=== PATIENT | male | born 1955 | race Caucasian/White ===

== ENCOUNTER 2022-12-06 08:09 | Day surgery (SDC) | payer OTHER, SELFPAY ==
--- NOTE | 2022-12-05 10:58 | HO.ANESPROP2 ---
Documented by User: Lexus Marie NP 12/05/22 11:02 HPI - Anesthesia Eval Consult details Narrative: 67yo M for Upper Endoscopy and Colonoscopy CAD with stents and pericarditis ~ 20yrs ago. Now, no CP/SOB with >4 mets. No longer follows cardiology. [facility] Past Medical History Medical History (Updated 12/05/22 @ 10:05 by Char Connor RN) CAD (coronary artery disease) Elevated PSA HTN (hypertension) Hyperlipidemia Osteoarthritis Pericarditis Prediabetes Surgical History Surgical History (Updated 12/05/22 @ 10:05 by Char Connor RN) H/O cardiac catheterization Hx of tonsillectomy Social History Social History Patient Tobacco Use Status: Current everyday Tobacco user Tobacco use type: Cigarette Cigarettes Per Day: 11 Use of substances other than those prescribed or required for medical reasons: No Are you DNR?: No Advance Directives: No Advance Directives Information Provided: Yes Recently lost weight without trying: No Nutrition Risks: No Nutritional Risk Meds Allergies Allergy/AdvReac Type Severity Reaction Status Date / Time atorvastatin [From LIPITOR] Allergy Unknown ACHY BODY Unverified 04/20/20 17:18 ALL OVER lisinopril [LISINOPRIL] Allergy Unknown SEVERE Unverified 04/20/20 17:18 COUGH Home Medications Medication Instructions Recorded Confirmed Last Taken Type amlodipine 5 mg tablet 5 mg PO DAILY 12/05/22 12/06/22 12/06/22 History bupropion HCl 150 mg tablet,12 hr 150 mg PO BID 12/05/22 12/06/22 12/06/22 History sustained-release carvedilol 25 mg tablet 25 mg PO BID 12/05/22 12/06/22 12/06/22 History hydrochlorothiazide 25 mg tablet 25 mg PO DAILY 12/05/22 12/06/22 Unknown History pantoprazole 40 mg tablet,delayed 40 mg PO DAILY 12/05/22 12/06/22 12/06/22 History release rosuvastatin 40 mg tablet (Crestor) 40 mg PO DAILY 12/05/22 12/06/22 12/06/22 History sildenafil 100 mg tablet 100 mg PO DAILY PRN SEXUAL ACTIVITY 12/05/22 12/06/22 Unknown History triamcinolone acetonide 0.1 % appl topical BID 12/05/22 Unknown History topical cream varenicline 1 mg tablet 1 mg PO BID 12/05/22 12/06/22 Unknown History Exam Exam Date and Time: December 05, 2022 1058 Assessment and Plan Assessment Anesthesia Assessment: Chart Reviewed Documented by User: Ivonne Gutierrez MD 12/06/22 08:46 [facility] Past Medical History Medical History (Updated 12/05/22 @ 10:05 by Char Connor RN) CAD (coronary artery disease) Elevated PSA HTN (hypertension) Hyperlipidemia Osteoarthritis Pericarditis Prediabetes Family History Family history of problems with anesthesia: No Surgical History Surgical History (Updated 12/05/22 @ 10:05 by Char Connor RN) H/O cardiac catheterization Hx of tonsillectomy History of Problems with Anesthesia: No Social History Social History Patient Tobacco Use Status: Current everyday Tobacco user Tobacco use type: Cigarette Cigarettes Per Day: 11 Use of substances other than those prescribed or required for medical reasons: No Are you DNR?: No Advance Directives: No Advance Directives Information Provided: Yes Recently lost weight without trying: No Nutrition Risks: No Nutritional Risk Meds Allergies Allergy/AdvReac Type Severity Reaction Status Date / Time atorvastatin [From LIPITOR] Allergy Unknown ACHY BODY Unverified 04/20/20 17:18 ALL OVER lisinopril [LISINOPRIL] Allergy Unknown SEVERE Unverified 04/20/20 17:18 COUGH Home Medications Medication Instructions Recorded Confirmed Last Taken Type amlodipine 5 mg tablet 5 mg PO DAILY 12/05/22 12/06/22 12/06/22 History bupropion HCl 150 mg tablet,12 hr 150 mg PO BID 12/05/22 12/06/22 12/06/22 History sustained-release carvedilol 25 mg tablet 25 mg PO BID 12/05/22 12/06/22 12/06/22 History hydrochlorothiazide 25 mg tablet 25 mg PO DAILY 12/05/22 12/06/22 Unknown History pantoprazole 40 mg tablet,delayed 40 mg PO DAILY 12/05/22 12/06/22 12/06/22 History release rosuvastatin 40 mg tablet (Crestor) 40 mg PO DAILY 12/05/22 12/06/22 12/06/22 History sildenafil 100 mg tablet 100 mg PO DAILY PRN SEXUAL ACTIVITY 12/05/22 12/06/22 Unknown History triamcinolone acetonide 0.1 % appl topical BID 12/05/22 Unknown History topical cream varenicline 1 mg tablet 1 mg PO BID 12/05/22 12/06/22 Unknown History Exam Airway Mallampati Class: II (implants and caps in front) TM Dist: >3cm Neck ROM: Full Heart: rrr Lungs: cta Assessment and Plan Assessment Anesthesia Assessment: Anesthesia Plan Discussed Final Anesthetic Review Family History of Problems with Anesthesia: No History of Problems with Anesthesia: No NPO: Yes ASA Class: III Final Preanesthetic Review: No Changes in Pt Med Stat, Meds/Allgs Chart Reviewed and Consent Obtained/Reviewed Patient Risk: Intermediate Procedure Risk: Intermediate Anesthetic Plan Anesthetic Plan: MAC: Disposition: Standard PACU
[2022-12-06 08:37] VITALS: BMI 33.4
[2022-12-06 08:52] VITALS: BP 164/81; PULSE 85; RESP 16; TEMP 36.1; O2SAT 97
[2022-12-06] MEDS: Lactated Ringers 1,000 ML 100 ML IVCONT (09:04)
--- NOTE | 2022-12-06 09:26 | MHC.SHP ---
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,screening Details of Present Illness: see H&P no changes Relevant Family History (Specify if Yes): No Relevant Social History: None Present Medications: see Short Stay Collaborative assessment Medical History: No relevant PMH Allergies: Allergies Allergy/AdvReac Type Severity Reaction Status Date / Time atorvastatin [From LIPITOR] Allergy Unknown ACHY BODY Verified 12/06/22 09:04 ALL OVER lisinopril [LISINOPRIL] Allergy Unknown SEVERE Verified 12/06/22 09:04 COUGH Review of Systems Sugical H&P ROS: Negative: Constitution, Cardiovascular, Respiratory, Neurological, Psychiatric, Hem-Onc, Allergic/Immunologic, Gastrointestinal, Genitourinary, Musculoskeletal, Integumentary, Endocrine and Eyes/Ears/Nose/Throat Exam Surgical H&P Exam: Normal: HEENT, Normal: Heart, Normal: Lungs, Normal: Extremities, Normal: Abdomen, Normal: Skin and Normal: Neurological Plan Diagnosis/Plan: Unchanged I have reviewed the history and physical and performed a pertinent physical examination on my patient. No changes have occurred unless specified. Time Spent With Patient Time: Total time managing care of this patient today ____ minutes.
[2022-12-06 10:13] VITALS: BP 120/82; PULSE 91; RESP 16; TEMP 37.1; O2SAT 94
[2022-12-06 10:28] VITALS: BP 131/84; PULSE 89; RESP 16; TEMP 37.1; O2SAT 96
--- NOTE | 2022-12-06 11:01 | OP_ITS ---
DATE OF SERVICE: 12/06/2022 SURGEON: Ant Griffith MD INDICATIONS: 1. Pereira esophagus. 2. Colon cancer screening. PREOPERATIVE DIAGNOSIS: POSTOPERATIVE DIAGNOSIS: PROCEDURE PERFORMED: Upper endoscopy with biopsy, colonoscopy to the terminal ileum with biopsy and snare polypectomy. ESTIMATED BLOOD LOSS: COMPLICATIONS: ANESTHESIA: Monitored anesthesia care. ASSISTANTS: SPECIMENS: DESCRIPTION OF PROCEDURE: A history and physical was performed. The risks and benefits of the procedure were explained to the patient. Informed consent was obtained. The patient was placed in the left lateral decubitus position. The Olympus video gastroscope was introduced into the esophagus, stomach, and duodenum. Examination was performed. The scope was removed. He was repositioned for colonoscopy. A digital rectal exam was performed and was found to be normal. The Olympus pediatric video colonoscope was introduced into the rectum and advanced to the cecum without difficulty. The cecum was identified by transillumination, palpation, and identification of the ileocecal valve. Examination was performed. The scope was removed. He tolerated the procedure well and was returned to the recovery area in stable condition. FINDINGS: Upper endoscopy: 1. Esophagus: The esophagus showed a small segment of Pereira esophagus measuring approximately 1 cm. Biopsies were obtained from the EG junction at 35 cm and at 34 cm. 2. Stomach: The stomach was normal. 3. Duodenum: There was mild duodenitis. Colonoscopy: The terminal ileum was normal. The visualized colonic mucosa was normal. There were 3 polyps, all of which were removed. The first was less than 5 mm located at 80 cm and was removed with biopsy forceps, the second was located at 70 cm, and the third was located at 50 cm. Both of these were less than 10 mm and removed with a hot snare. No other polyps were identified. The quality of the prep was good. Retroflexed examination was normal. IMPRESSION: 1. Pereira esophagus. 2. Colon polyps. RECOMMENDATION: Follow up the biopsy results. MD HAM Morse/ROSIBEL / [id number]
== END 2022-12-06 10:50 | disposition home or self-care (01) ==
PROVIDERS: PCP Family Medicine; Visit Provider Internal Medicine Gastroenterology
PROC: (CPT 45385; principal; 2022-12-06 09:30)
DX: Z12.11 Encounter for screening for malignant neoplasm of colon (principal); Z86.010 Personal history of colon polyps; D12.4 Benign neoplasm of descending colon; D12.5 Benign neoplasm of sigmoid colon; K22.70 Barrett's esophagus without dysplasia; K29.80 Duodenitis without bleeding; K21.9 Gastro-esophageal reflux disease without esophagitis; I31.9 Disease of pericardium, unspecified; I25.10 Atherosclerotic heart disease of native coronary artery without angina pectoris; Z95.5 Presence of coronary angioplasty implant and graft; I10 Essential (primary) hypertension; E78.5 Hyperlipidemia, unspecified; R73.03 Prediabetes; R97.20 Elevated prostate specific antigen [PSA]; Z79.899 Other long term (current) drug therapy; Z88.8 Allergy status to other drugs, medicaments and biological substances; F17.211 Nicotine dependence, cigarettes, in remission
CPT/HCPCS: 45385; 45380; 43239; 88305